=== PATIENT | male | born 1975 | race Caucasian/White ===

== ENCOUNTER 2017-10-14 12:47 | Day surgery (SDC) | payer MEDICARE, MEDICAID ==
[~2017-10-14] VITALS: Ht 177.8 cm; Wt 209.1 kg
[~2017-10-14 12:47] MED LIST: DIPH25 PO; LIDOCAINE HCL/PF 2% 5 ML VIAL INJ ONE; PROPOFOL 1% 20 ML VIAL IVP ONE; SODIUM CHLORIDE 0.9% 1,000 ML IV ONE
[2017-10-14] MEDS ORDERED: DICY20 PO (13:05)
[2017-10-14] MEDS ORDERED: CYAN250010 PO (13:06)
== END 2017-10-14 16:00 | disposition home or self-care (01) ==
LOC: SURGERY 12:47
PROVIDERS: ATTEND Internal Medicine Gastroenterology
DX: K64.8 Other hemorrhoids (principal); K57.30 Diverticulosis of large intestine without perforation or abscess without bleeding; K52.89 Other specified noninfective gastroenteritis and colitis; E66.01 Morbid (severe) obesity due to excess calories; F17.210 Nicotine dependence, cigarettes, uncomplicated; Z68.44 Body mass index [BMI] 60.0-69.9, adult; Z79.899 Other long term (current) drug therapy
CPT/HCPCS: 45380; 88305; J2704; J3490; J7030